=== PATIENT | female | born 1960 | race Caucasian/White ===

== ENCOUNTER 2016-04-11 11:38 | Day surgery (SDC) | payer BC ==
[~2016-04-11] VITALS: Ht 157.5 cm; Wt 73.6 kg
[2016-04-11 12:15] VITALS: Ht 157.5 cm; Wt 73.6 kg
[2016-04-11] MEDS ORDERED: SIMV20TA6 PO (12:40)
[2016-04-11] MEDS ORDERED: HYDROCODONE (12:40)
[2016-04-11] MEDS ORDERED: PANT40TA4 PO (12:40)
[2016-04-11] MEDS ORDERED: AMLO-145 PO (12:40)
[2016-04-11] MEDS ORDERED: ACETAMINOPHEN (12:40)
[2016-04-11] MEDS ORDERED: CLON0.2T5 PO (12:40)
[2016-04-11 13:56] VITALS: BP 136/71; PULSE 65; RESP 13
[2016-04-11] MEDS ORDERED: FENTAnyl 50 MCG/ML VIAL ONE (14:40)
[2016-04-11] MEDS ORDERED: PROPOFOL 20 ML ONE (14:40)
--- NOTE | 2016-04-11 17:00 | GILP ---
DATE OF PROCEDURE: 04/11/2016 PROCEDURE: Esophagogastroduodenoscopy with biopsies. BRIEF HISTORY AND INDICATIONS: The patient is being evaluated for abdominal pain. PREMEDICATION: Monitored anesthesia care by anesthesiologist. SURGEON: Andrew Rush MD INSTRUMENT USED: Olympus panendoscope. TECHNIQUE: After informed consent, with the patient/relatives understanding the procedure, its indic ations, potential risks and complications, including but not limited to: allergic reaction, bleeding , perforation or infection, and after all pertinent questions were answered to the patient's satisfa ction, the patient/relatives signed witnessed informed consent. Following this, premedication was administered slowly IV push under careful cardiovascular and respi ratory monitoring with pulse oximetry, automatic blood pressure and vehicle monitor technician. Once the sedative effect was achieved the patient was place in the left lateral decubitus, the panen doscope was introduced and advanced under visual control. Careful examination of the upper gastrointestinal tract, both on insertion as well as withdrawal of the instrument disclosed the following findings: ESOPHAGUS: Distal esophagus shows mild erythema and edema of the mucosa. STOMACH: Upon entrance to the stomach air was insufflated, the gastric mckenzie distended normally. The re is moderate erythema and edema of the mucosa of the antrum. Biopsies were obtained to rule out H. pylori infection. PYLORUS: The pylorus appears patent and within normal limits, with no evidence of gastric outlet ob struction. DUODENUM: The duodenal mucosa was carefully examined in the duodenal bulb as well as the second por tion of the duodenum and appears unremarkable with no evidence of duodenitis, ulcer or neoplasm. The instrument was then withdrawn, the patient tolerated the procedure well and was transfer out of the endoscopy suite awake, and in good condition to continue recovery under observation IMPRESSION: 1. Mild distal esophagitis. 2. Moderate gastritis, rule out Helicobacter pylori infection, biopsies obtained. PLAN: The patient will be continued on PPIs. Pathology will be reviewed as soon as available. Dictated By: ANDREW RUSH MS/LEILANI Conf#: [id number] DID#: [id number] CC: ANDREW RUSH;*EndCC*
== END 2016-04-11 15:54 | disposition home or self-care (01) ==
LOC: GIL 11:38
PROVIDERS: ATTEND Internal Medicine Gastroenterology
DX: K29.30 Chronic superficial gastritis without bleeding (principal); I10 Essential (primary) hypertension; E78.5 Hyperlipidemia, unspecified; E66.9 Obesity, unspecified; Z68.29 Body mass index [BMI] 29.0-29.9, adult
CPT/HCPCS: 43239; 88305; 88312; J3010; Z7610

== ENCOUNTER 2018-10-06 06:56 | Day surgery (SDC) | payer BC ==
[2018-10-06] VITALS (10 sets, daily range): BP systolic 105–126; BP diastolic 61–78; PULSE 52–59; RESP 13–19; Ht 154.9 cm; Wt 72.9 kg
[~2018-10-06] VITALS: Ht 154.9 cm; Wt 72.9 kg
[~2018-10-06 06:56] MED LIST: ACETAMINOPHEN; AMLO-145 PO; CLON0.2T5 PO; HYDROCODONE; OMEPRAZOLE; PANT40TA4 PO; SIMV20TA20 PO
--- NOTE | 2018-10-06 09:12 | PREAC ---
Date/Time of Note Date/Time of Note DATE: 10/06/18 TIME: 09:11 Anesthesia Eval and Record Evaluation Time Pre-Procedure Interview DATE: 10/06/18 TIME: 09:11 Age 58 Sex female NPO: 8 hrs Preoperative diagnosis GERD Planned procedure EGD Past Medical History Past Medical History: Includes Cardio: HTN, Dyslipidemia GI: GERD Surgery & Anesthesia Issues No known issue Meds Anticoagulation: No Beta Becki within 24 hr: No Reason Beta Becki not given: Pt. not on B-Becki Reported Medications [Omeprazole] No Conflict Check 10/06/18 Clonidine Hcl* (Clonidine Hcl*) 0.2 Mg Tablet, 0.2 MG PO Q6, TAB 04/11/16 Amlodipine Besylate* (Amlodipine Besylate*) 5 Mg Tablet, 5 MG PO DAILY, #30 TAB 04/11/16 Discontinued Reported Medications [Hydrocodone-Actam] No Conflict Check 04/11/16 Simvastatin (Simvastatin) 20 Mg Tablet, 20 MG PO QHS, #30 TAB 04/11/16 Pantoprazole (Protonix) 40 Mg Tabec, 40 MG PO DAILY, TAB 04/11/16 Meds reviewed: Yes Allergies Coded Allergies: No Known Allergy (Unverified , 10/06/18) Allergies Reviewed: Yes Labs/Studies Labs Reviewed: Reviewed by anesthesiologist test: N/A Pre-procedure Exam Last vitals Vital Signs Date Temp Pulse Resp B/P (MAP) Pulse Ox O2 O2 Flow FiO2 Time Delivery Rate 10/06/18 97.7 57 17 108/69 98 Room Air 08:04 (82) Airway: Adequate mouth opening, Adequate thyromental dist Mallampati: Mallampati II Teeth: Normal Lung: Normal Heart: Normal ASA Physical Status ASA physical status: 2 Emergency: None Planned Anesthetic General/MAC: MAC Planned Pain Management Parenteral pain med Pre-operative Attestations Prior to commencing anesthesia and surgery, the patient was re-evaluated, there was verification of: *The patient's identity *The results of appropriate recent lab work and preoperative vital signs *The above evaluation not changing prior to induction *Anesthetic plan, risk benefits, alternative and complications discussed with patient/family; questions answered; patient/family understands, accepts and wishes to proceed. Yang Garrett M.D. Oct 06, 2018 09:12
[2018-10-06] MEDS ORDERED: LIDOCAINE 100 MG SYRINGE ONE (09:13)
[2018-10-06] MEDS ORDERED: FENTAnyl 50 MCG/ML VIAL ONE (09:13)
[2018-10-06] MEDS ORDERED: PROPOFOL 40 ML ONE (09:13)
[2018-10-06] MEDS ORDERED: PROPOFOL 200 MG INJ ONE (09:13)
--- NOTE | 2018-10-06 09:46 | PAC ---
Date/Time of Note Date/Time of Note DATE: 10/06/18 TIME: 09:46 Post-Anesthesia Notes Post-Anesthesia Note Last documented vital signs Vital Signs Date Temp Pulse Resp B/P (MAP) Pulse Ox O2 O2 Flow FiO2 Time Delivery Rate 10/06/18 97.7 57 17 108/69 98 Room Air 08:04 (82) Activity: WNL Respiratory function: WNL Cardiovascular function: WNL Mental status: Baseline Pain reasonably controlled: Yes Hydration appropriate: Yes Nausea/Vomiting absent: Yes Yang Garrett M.D. Oct 06, 2018 09:46
== END 2018-10-06 10:50 | disposition home or self-care (01) ==
LOC: GIL 06:56
PROVIDERS: ATTEND Internal Medicine Gastroenterology
DX: K29.50 Unspecified chronic gastritis without bleeding (principal)
CPT/HCPCS: 43239; 88305; 88312; J2001; J3010; Z7610